=== PATIENT | male | born 1975 | race Caucasian/White ===

== ENCOUNTER 2017-07-10 19:50 | Emergency (ER) | payer SELFPAY ==
[~2017-07-10] VITALS: Ht 182.9 cm; Wt 110.2 kg
[~2017-07-10 19:50] MED LIST: ASPI325T39 PO; CIPR-255 PO; MULT-506 PO; ONDA4TAB7 SL
[2017-07-10 20:04] VITALS: BP 154/100; PULSE 67; TEMP 36.4; O2SAT 98; Ht 182.9 cm; Wt 110.2 kg
[2017-07-10] MEDS ORDERED: HYDR-5688 PO (20:22)
[2017-07-10] MEDS ORDERED: PENI500T2 PO (20:22)
[2017-07-10] MEDS ORDERED: NORCO 5/325MG HOME PACK PO ONE (20:30)
[2017-07-10] MEDS ORDERED: PENICILLIN HOME PACK 500MG (4 DOSES)BTL PO ONE (20:30)
[2017-07-10] MEDS ORDERED: IBUP-1050 PO (20:34)
--- NOTE | 2017-07-11 01:10 | EMERGENCY ROOM VISIT NOTE ---
ED Visit Note First contact with patient: 20:08 CHIEF COMPLAINT: Toothache. HISTORY OF PRESENT ILLNESS: Mr. Holland is a 41-year-old white male who ambulates into the ED accompanied by family members complaining of dental pain. He reports a progressive dental pain for 28 hours over the right mandible. The pain is now steady and severe and radiates to the face. He has been using ibuprofen but tonight the pain became severe. Patient reports yesterday he was eating almonds and cracked a tooth. Currently he is complaining of pain in the area of tooth 30. He rates her discomfort 9/ 10. His is pain does radiate into the preauricular area and the angle of the mandible. His pain worsens with palpation and chewing. He has not identified any alleviating factors related to the pain for the last 6 hours. Associated with his pain he reports he feels a small lump under the mandible. He denies any associated symptoms including fevers, chills, sweats, facial swelling, sore throat, difficulty swallowing, voice changes, drooling. REVIEW OF SYSTEMS: As noted above in History of Present Illness. 8 body systems were reviewed with this patient and found to be negative unless noted above otherwise. PMH: Kidney stones. CURRENT MEDICATION: Patient denies. ALLERGIES TO MEDICATION: Sulfa. SOCIAL HISTORY: Patient is currently employed; he feels safe in his home environment; he admits to tobacco and alcohol use. PHYSICAL EXAM: Vital Signs: Date Time Temp Pulse Resp B/P (MAP) Pulse Ox O2 Delivery O2 Flow Rate FiO2 07/10/17 20:04 36.4 67 18 154/100 98 Room Air General: 41 year-old male in moderate distress due to pain, nontoxic appearing, afebrile and hemodynamically stable. Neurological: Awake, alert and oriented to person, place and time. Answering questions appropriately and following commands. Normal gait. Good hand eye coordination. No focal motor or sensory deficits. Skin: Warm, dry and pink. No soft tissue lesions, rashes, or trauma noted. HEENT: Atraumatic and normocephalic. no facial swelling or erythema. Oral cavity is moist and pink. Airway is patent. Uvula is midline and no abscesses are seen. Speech is normal. Tooth #30 shows a crack over the anterior aspect. I do not appreciate any exposure of dentine or nerve tissue. No local erythema or edema. No palpable abscesses. Positive anterior chain cervical lymphadenopathy. No submandibular lymphadenopathy. ED COURSE: Patient is assessed as noted above. Patient's medication list was reviewed. Patient is educated about his findings and instructed on his treatment plan; he verbalizes understanding and agreement with this plan. CLINIC IMPRESSION: tooth fracture. DISPOSITION: Patient discharged home in stable condition; prior to departure she was reassessed and subjectively reported she was feeling the same. PLAN: Patient was prescribed Pen-Vee K 500 mg 4 times a day for 10 days. Comfort measures were discussed including covering the affected tooth with dental wax, liquid/mechanical soft diet and a sliding pain scale of ibuprofen, acetaminophen and [place]. Appropriate narcotic precautions were discussed with patient and his name was checked on the state database and no red flags were noted. Patient was encouraged to followup with personal dentist for definitive care and treatment. Patient was encouraged to return the ED for worsening/uncontrolled pain, facial swelling, fevers or any new/concerning symptoms.
== END 2017-07-10 20:32 | disposition home or self-care (01) ==
LOC: C.EDB 19:52 → C.EDD 20:32
DX: S02.5XXA Fracture of tooth (traumatic), initial encounter for closed fracture (principal); W22.8XXA Striking against or struck by other objects, initial encounter; Y93.89 Activity, other specified; Y99.8 Other external cause status; Z87.442 Personal history of urinary calculi; Z72.0 Tobacco use